=== PATIENT | female | born 1990 | race Caucasian/White ===

== ENCOUNTER 2024-12-18 07:49 | Emergency (ER) | payer BC, SELFPAY ==
[2024-12-18 08:04] VITALS: BP 126/88
[2024-12-18 08:38] LABS: % Basophils 0.1 % (0-2); % Eosinophils 0.2 % (0-6); % Immature Granulocytes 1.7 % (0-0.5); % Lymphocytes 6.6 % (20.5-51.1); % Monocytes 8.3 % (1.7-9.3); % Neutrophils 83.1 % (42.2-75.2); Absolute Immature Granulocytes 0.2 10^3/uL (0-0.05); Absolute Lymphocytes 0.6 10^3/uL (1.2-3.4); Absolute Monocytes 0.7 10^3/uL (0.1-0.6); Absolute Neutrophils 7.4 10^3/uL (1.4-6.5); Hematocrit 36.9 % (37.0-47.0); Hemoglobin 12.6 g/dL (12.0-16.0); Mean Corp Hgb Conc. 34.1 g/dL (33.0-37.0); Mean Corpuscular Hgb 29.6 pg (27.0-31.0); Mean Corpuscular Volume 86.6 fL (81.0-99.0); Mean Platelet Volume 10.5 fL (7.4-10.4); Nucleated Red Blood Cells % 0 %; Platelet Count 148 10^3/uL (130-400); Red Blood Cell Count 4.26 10^6/uL (4.20-5.40); Red Cell Dist. Width 12.5 % (11.5-14.5); White Blood Cell Count 8.9 10^3/uL (4.8-10.8)
[2024-12-18 08:54] LABS: ALT (SGPT) 28 U/L (0-35); AST (SGOT) 33 U/L (14-36); Albumin 3.9 g/dl (3.5-5.0); Alkaline Phosphatase 61 U/L (38-126); Blood Urea Nitrogen 15 mg/dl (7-17); Calcium 8.9 mg/dl (8.4-10.2); Carbon Dioxide 27 mmol/L (22-30); Chloride 102 mmol/L (98-107); Glucose 97 mg/dl (70-99); Sodium 137 mmol/L (135-145); Total Bilirubin 0.6 mg/dl (0.2-1.3); Total Protein 6.6 g/dl (6.3-8.2); eGFR > 60.00
[2024-12-18 09:04] LABS: COVID-19 Antigen Negative (Negative)
--- NOTE | 2024-12-18 09:43 | ED.GENMED ---
History of Present Illness
General
Chief Complaint: Fever
Source: patient
Exam Limitations: none
Time Seen by Provider: 12/18/24 09:28
Nursing documentation reviewed up to this point in time: agreed with
History of Present Illness
History of Present Illness:
34-year-old female with history of MS, self injects 3 times a week her MS medication Copaxone, 'minutes' afterwards she got 'really red over my whole body,' developed chest tightness and some trouble breathing, she called EMS, when they arrived
within 15 minutes her symptoms totally resolved and she declined transport to the ER. 5 minutes after EMS left she began 'shaking really bad, like I could not even hold my phone,' this lasted 15 minutes. She is now totally asymptomatic.
She denies chest pain or trouble breathing at this time. Her skin is back to normal color.
Past History
Past History
ED Past Medical History: Other (Multiple sclerosis)
ED Past Surgical History: None
Social History
Tobacco: Non-smoker
Alcohol: None
Personal:
Living: with family
Employment: Employed
Review of Systems
Review of Systems
Allergies reviewed?: Yes
All Other Systems: ROS reviewed and negative except as documented in HPI and ROS
Constitutional: Reports fever (low grade fevers off and on past 2 weeks, had norovirus last week); Denies fatigue
EENT: Denies sore throat or mouth swelling
Respiratory: Denies trouble breathing
Cardiac: Denies chest pain
ABD/GI: Denies abdominal pain, nausea, vomiting or diarrhea
: Denies dysuria, frequency or difficulty voiding
Phy Exam
Physical Exam
Physical Exam:
GENERAL: No acute distress. A&Ox3.
CONSTITUTIONAL: Afebrile.
EYES: clear, conjunctivae normal
ENMT: moist mucus membranes, Pharynx nl
RESPIRATORY: Regular respirations, nonlabored, lungs clear.
CARDIOVASCULAR: Regular rate and rhythm, no murmurs, no rubs.
GI: Soft, nontender
MUSCULOSKELETAL: Moves with ease. Well perfused.
SKIN: Warm, dry, pink
PSYCH: Normal mood and affect. Well kept, interactive and appropriate
NEUROLOGIC: Awake, alert and oriented. No focal neurological deficits
Sepsis
Sepsis Screening
Sepsis Assessment: Sepsis Ruled Out
Sepsis Screen
Sepsis Screen: Sepsis Ruled Out
Date: 12/18/24
Time: 16:39
Course
Orders/Labs/Results
Orders:
Orders
12/18/24 08:27
CMP [Comprehensive Metabolic Panel] Urgent
COVID-19 Antigen Urgent
Source: Nasal Swab
Complete Blood Count/With Diff Urgent
Influenza A+B Rapid Molecular Urgent
VANDANA Source: Nasal Swab
Specimen Description:
Abnormal Lab Results
12/18/24
08:27
Hct 36.9 L %
(37.0-47.0)
MPV 10.5 H fL
(7.4-10.4)
Abs Immat Gran (auto) 0.2 H 10^3/uL
(0-0.05)
Absolute Neuts (auto) 7.4 H 10^3/uL
(1.4-6.5)
Absolute Lymphs (auto) 0.6 L 10^3/uL
(1.2-3.4)
Absolute Monos (auto) 0.7 H 10^3/uL
(0.1-0.6)
Immature Gran % 1.7 H %
(0-0.5)
Neutrophils % 83.1 H %
(42.2-75.2)
Lymphocytes % 6.6 L %
(20.5-51.1)
12/18/24 08:27
12/18/24 08:27
Vital Signs
Initial and Last Documented VS:
Initial Vital Signs
Temp Pulse Resp BP Pulse Ox
101.0 F H 126 18 126/88 96
12/18/24 08:04 12/18/24 08:04 12/18/24 08:04 12/18/24 08:04 12/18/24 08:04
Last Documented Vital Signs
Temp Pulse Resp BP Pulse Ox
99.4 F 87 16 107/67 96
12/18/24 09:58 12/18/24 09:58 12/18/24 09:58 12/18/24 09:58 12/18/24 09:58
MDM/Problems Addressed
Differential Diagnosis Includes:
Medication side effects/adverse effect, anaphylaxis
MDM/Problems Addressed:
34-year-old female with history of MS, self injects 3 times a week her MS medication Copaxone, 'minutes' afterwards she got 'really red over my whole body,' developed chest tightness and some trouble breathing, she called EMS, when they arrived
within 15 minutes her symptoms totally resolved and she declined transport to the ER. 5 minutes after EMS left she began 'shaking really bad, like I could not even hold my phone,' this lasted 15 minutes. She is now totally asymptomatic.
She denies chest pain or trouble breathing at this time. Her skin is back to normal color.
Afebrile, NAD
9:45 AM:
Physical exam is unremarkable, patient states she feels 100% back to her baseline
She will notify her neurologist today as this was most likely a side effect/adverse effect of her medication
Temperature repeat 99.4 HR 87, Pulse ox 97%
Patient is stable for discharge
*Critical Care Note
Total Time (30-74mins, 75-104mins- exclusive of procedures): Not Applicable
ED Attending Note
-
Portions of this chart may have been created with voice recognition software.� Occasional wrong word or��sound alike� substitutions may have occurred due to the inherent limitations of voice recognition software.
Discharge Plan
Departure
Patient Disposition: Home (Routine Discharge)
Date of Disposition: 12/18/24
Time of Disposition: 10:02
Patient with high blood pressure during this ER visit?: No
Condition: Good
Discharge Problem:
Adverse drug reaction
Instructions: Fever, Adult (DC), Adverse Drug Reactions, Adult ED
Referrals:
Javi Quinteros Neurologist [Other] - As needed
Activity Restrictions/Additional Instructions:
As we discussed, contact your neurologist today and let them know of this episode. Obviously, do not take the Copaxone until you discuss with him.
Tylenol or ibuprofen as needed for fever, see your family doctor in 5 to 7 days if your fever persists
Interventions
Interventions:
*Risk Screen - Suicide Last Done: 12/18/24 08:04
*General Assessment Last Done: 12/18/24 08:04
*Neglect/Abuse Screening Last Done: 12/18/24 08:04
*ED COVID-19 Vaccine History Last Done: 12/18/24 08:04
*Nursing Disposition Last Done: 12/18/24 10:30
ED- Neurological Assessment Last Done: 12/18/24 10:00
ED-Skin Assessment Last Done: 12/18/24 10:00
Discharge Date and Time
Discharge Date/Time: 12/18/24 10:31
Print Language: [email or web address]
[2024-12-18 09:58] VITALS: BP 107/67
== END 2024-12-18 10:31 | disposition home or self-care (01) ==
LOC: EMR 07:49
PROVIDERS: Student in an Organized Health Care Education/Training Program; EMERGENCY PHYSICIAN Student in an Organized Health Care Education/Training Program; FAMILY PHYSICIAN Family Medicine
DX: R06.00 Dyspnea, unspecified (principal); T50.995A Adverse effect of other drugs, medicaments and biological substances, initial encounter; R07.89 Other chest pain; G35 Multiple sclerosis
CPT/HCPCS: 99283; 80053; 85025; 87502; 87811